=== PATIENT | female | born 1970 | race African-American/Black ===

== ENCOUNTER 2016-04-12 11:56 | Emergency (ER) | payer BC ==
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
[~2016-04-12 11:56] MED LIST: DICYCLOMINE HCL20 MG PO; MUSCLE RELAXER; NAPROXEN; NAPROXEN PO; NO MEDICATIONS; PEPCID AC20 M2 PO; PHENERGAN25 M1 PO; ROBAXIN 750750 M1 PO; VOLTAREN75 MG PO
[2016-06-09] MEDS ORDERED: PREDNISONE (07:20)
== END 2016-04-12 13:16 | disposition home or self-care (01) ==
LOC: SED 11:56
DX: S13.9XXA Sprain of joints and ligaments of unspecified parts of neck, initial encounter (principal); S23.3XXA Sprain of ligaments of thoracic spine, initial encounter; S33.5XXA Sprain of ligaments of lumbar spine, initial encounter; F17.210 Nicotine dependence, cigarettes, uncomplicated; X50.9XXA Other and unspecified overexertion or strenuous movements or postures, initial encounter
CPT/HCPCS: 72072; 72100; 99284

== ENCOUNTER 2016-06-09 08:29 | Emergency (ER) | payer OTHER ==
[2016-06-09 07:53] LABS: URINE SOURCE CLEAN CATCH
[2016-06-09 07:57] LABS: URINE APPEARANCE SL CLOUDY; URINE BILIRUBIN NEG (NEG); URINE BLOOD 3+ (NEG); URINE COLOR YELLOW; URINE GLUCOSE NEG (NORM); URINE KETONE NEG (NEG); URINE LEUKOCYTE ESTERASE TRACE (NEG); URINE NITRATE POS (NEG); URINE PH 6.5 (5-8); URINE PROTEIN NEG (NEG); URINE SPECIFIC GRAVITY 1.015 (1.003-1.035); URINE UROBILINOGEN 0.2 MG/DL (NORM)
[2016-06-09 08:02] LABS: MICRO INDICATED? YES
[2016-06-09 08:04] LABS: URINE RBC INNUM /[HPF] (0-2)
[2016-06-09 08:06] LABS: CULTURE INDICATED? YES; URINE BACTERIA 3+ (NEG); URINE SQUAMOUS EPITHELIAL CELL FEW /[HPF]; URINE TRANSITIONAL EPI CELLS FEW /[HPF]
[~2016-06-09 08:29] MED LIST changes: +PREDNISONE
== END 2016-06-09 08:37 | disposition home or self-care (01) ==
LOC: SED 08:29
PROVIDERS: Emergency Medicine
DX: N30.00 Acute cystitis without hematuria (principal); F17.200 Nicotine dependence, unspecified, uncomplicated; Z98.890 Other specified postprocedural states; Z79.899 Other long term (current) drug therapy
CPT/HCPCS: 81003; 84703; 87086; 87088; 87186; 99283